=== PATIENT | female | born 1990 | race Two or more races ===

== ENCOUNTER 2018-05-10 20:22 | Emergency (ER) | payer SELFPAY ==
[~2018-05-10] VITALS: Ht 172.7 cm; Wt 76.2 kg
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
[2018-05-10] MEDS ORDERED: LIDOCAINE 1%-EPI 1:100,000 20 ML VIAL TP ONE (22:30)
[2018-05-10] MEDS ORDERED: TDAP [DIPH/PERTUSSIS/TET] 0.5 ML VIAL IM ONE ×2 (22:30→22:36)
[2018-05-10] MEDS ORDERED: LIDOCAINE 1%-EPI 1:100,000 20 ML VIAL ONE (22:39)
[2018-05-10 23:21] VITALS: BP 120/82
--- NOTE | 2018-05-10 23:30 | NUR ---
Patient discharged to home in stable condition. Written and verbal after care instructions given. Patient verbalizes understanding of instruction.
== END 2018-05-10 23:31 | disposition home or self-care (01) ==
LOC: ER 20:23
DX: S01.111A Laceration without foreign body of right eyelid and periocular area, initial encounter (principal); S01.01XA Laceration without foreign body of scalp, initial encounter; F41.9 Anxiety disorder, unspecified; W01.198A Fall on same level from slipping, tripping and stumbling with subsequent striking against other object, initial encounter; Y93.89 Activity, other specified; Y92.89 Other specified places as the place of occurrence of the external cause; Y99.8 Other external cause status
CPT/HCPCS: 12013; 99283; A4606; A6402 ×2; J3490; Z7610; 90715